=== PATIENT | male | born 1945 | race Caucasian/White ===

== ENCOUNTER 2016-11-04 11:33 | Day surgery (SDC) | payer MEDICARE, MEDICAID ==
[~2016-11-04] VITALS: Ht 188 cm; Wt 104.3 kg
[~2016-11-04 11:33] MED LIST: BALANCED SALT IRRIG SOLN COMB1 500ML OP NR; BICA50TA2 PO; OXYB5TAB11 PO; VOLTAREN PO
[2016-11-04] MEDS ORDERED: CYCLOPENTOLATE HCL 1% OPHTH DROPS 2ML RIGHTEYE ONE (12:30)
[2016-11-04] MEDS ORDERED: PHENYLEPHRINE HCL 10% OPHTH DROPS 5ML RIGHTEYE ONE (12:30)
[2016-11-04] MEDS ORDERED: TROPICAMIDE 1% OPHTH DROPS 15ML RIGHTEYE ONE (12:30)
[2016-11-04] MEDS ORDERED: PREDNISOLONE ACETATE 1% OPHTH DROPS 1ML ONE (13:00)
[2016-11-04] MEDS ORDERED: ACETYLCHOLINE CHLORIDE INTRAOCULAR SOLUTION 1:100 ELECTROLYTE DILUENT IO ONE (13:00)
[2016-11-04] MEDS ORDERED: CIPROFLOXACIN 0.3% OPHTH SOLN 2.5ML ONE (13:00)
[2016-11-04] MEDS ORDERED: BUPIVACAINE HCL/PF 0.75% (7.5MG/ML) 10ML ONE (13:00)
[2016-11-04] MEDS ORDERED: LIDOCAINE HCL 2%/EPINEPHRINE 1:100,000 20 ML VIAL INFIL ONE (13:00)
[2016-11-04] MEDS ORDERED: BALANCED SALT IRRIG SOLN 15ML ONE (13:00)
[2016-11-04] MEDS ORDERED: NEO/POLYMYX B SULF/DEXAMETH OPHTH OINT 3.5GM ONE (13:00)
[2016-11-04] MEDS ORDERED: TETRACAINE 0.5% OPHTH DROPS 4ML ONE (13:00)
[2016-11-04] MEDS ORDERED: LACTATED RINGERS 1,000 ML IV SCH (13:00)
[2016-11-04] MEDS ORDERED: LIDOCAINE HCL 1% 20ML VIAL (Pyxis) INJ ONE (13:18)
[2016-11-04] MEDS ORDERED: PROPOFOL 200MG/20ML VIAL IV ONE (13:18)
[2016-11-04] MEDS ORDERED: HYALURONATE SODIUM 14 MG/ML 0.85ML SYRINGE IO ONE (13:45)
[2016-11-04] MEDS ORDERED: FENTANYL CITRATE/PF 50MCG/ML 2ML VIAL ONE (13:51)
[2016-11-04] MEDS ORDERED: MIDAZOLAM HCL 2 MG/2 ML VIAL ONE (13:52)
[2016-11-04] MEDS ORDERED: DEXAMETHASONE 4MG/ML 1ML VIAL ONE (13:57)
[2016-11-04] MEDS ORDERED: ONDANSETRON HCL 4MG/2ML VIAL ONE (13:58)
[2016-11-04] MEDS ORDERED: SODIUM CHLORIDE 0.9% 10ML VIAL ONE (14:14)
[2016-11-04] MEDS ORDERED: CEFAZOLIN SODIUM 1000MG/VIAL ONE (14:14)
[2016-11-04] MEDS ORDERED: LABETALOL HCL 20MG/4ML CARPUJECT IV PRN (14:15)
[2016-11-04] MEDS ORDERED: HYDROMORPHONE HCL/PF 2MG/ML CPJ IV PRN (14:15)
[2016-11-04] MEDS ORDERED: MEPERIDINE HCL/PF 25MG/ML CPJ IV PRN (14:15)
[2016-11-04] MEDS ORDERED: ONDANSETRON HCL 4MG/2ML VIAL IV PRN (14:15)
== END 2016-11-04 15:50 | disposition home or self-care (01) ==
LOC: OR 11:33
PROVIDERS: ATTEND Ophthalmology
DX: H25.89 Other age-related cataract (principal)
CPT/HCPCS: 66984; A4216; J0690; J1100; J2250; J2405; J3010; J3490; J7120; V2632; J2704